=== PATIENT | female | born 1950 ===

== ENCOUNTER 2017-04-06 10:41 | Outpatient (CLI) | payer OTHER | END 2017-04-06 10:54 | disposition home or self-care (01) | LOC: MAMO-SONO 10:41 | DX: Z12.31 Encounter for screening mammogram for malignant neoplasm of breast (principal); Z87.898 Personal history of other specified conditions; N60.11 Diffuse cystic mastopathy of right breast ==

== ENCOUNTER 2018-04-08 10:26 | Outpatient (CLI) | payer OTHER | END 2018-04-08 10:38 | disposition home or self-care (01) | LOC: MAMO-SONO 10:26 | DX: Z12.31 Encounter for screening mammogram for malignant neoplasm of breast (principal); Z87.898 Personal history of other specified conditions; N60.11 Diffuse cystic mastopathy of right breast ==

== ENCOUNTER 2019-04-11 10:13 | Outpatient (CLI) | payer OTHER | END 2019-04-11 10:34 | disposition home or self-care (01) | LOC: MAMO-SONO 10:13 | DX: Z12.31 Encounter for screening mammogram for malignant neoplasm of breast (principal); Z87.898 Personal history of other specified conditions; N60.11 Diffuse cystic mastopathy of right breast ==

== ENCOUNTER 2020-04-18 13:32 | Outpatient (CLI) | payer OTHER | END 2020-04-18 13:41 | disposition HB | LOC: MAMO-SONO 13:32 | PROVIDERS: ATTEND Obstetrics & Gynecology | DX: Z12.31 Encounter for screening mammogram for malignant neoplasm of breast (principal); N60.11 Diffuse cystic mastopathy of right breast; N64.59 Other signs and symptoms in breast ==

== ENCOUNTER 2021-04-21 09:45 | Outpatient (CLI) | payer OTHER | END 2021-04-21 09:47 | disposition home or self-care (01) | LOC: MAMO-SONO 09:45 | PROVIDERS: ATTEND Obstetrics & Gynecology | DX: N60.11 Diffuse cystic mastopathy of right breast (principal) ==

== ENCOUNTER 2022-04-27 09:36 | Outpatient (CLI) | payer OTHER | END 2022-04-27 09:45 | disposition home or self-care (01) | LOC: MAMO-SONO 09:36 | PROVIDERS: ATTEND Obstetrics & Gynecology | DX: N60.11 Diffuse cystic mastopathy of right breast (principal) ==